=== PATIENT | male | born 1970 | race American Indian/Alaskan Native ===

== ENCOUNTER 2021-04-13 00:20 | Emergency (ER) | payer BC, OTHER ==
[2021-04-13] MEDS ORDERED: HYDROcodone/ACETAMINOPHEN 5-325 MG TAB PO ONE (05:11)
[2021-04-13] MEDS ORDERED: IBUPROFEN 600 MG TAB PO ONE (05:23)
[2021-04-13] MEDS ORDERED: ONDANSETRON 4 MG ODT TAB PO ONE (05:23)
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
[2021-04-13 06:25] VITALS: BP 133/92
== END 2021-04-13 05:30 | disposition home or self-care (01) ==
LOC: ED 00:20
DX: M62.830 Muscle spasm of back (principal); M62.838 Other muscle spasm; Z79.899 Other long term (current) drug therapy; V49.49XA Driver injured in collision with other motor vehicles in traffic accident, initial encounter; Y92.410 Unspecified street and highway as the place of occurrence of the external cause; Y93.89 Activity, other specified; Y99.8 Other external cause status
CPT/HCPCS: 72040; 72100; Q0162